=== PATIENT | male | born 1980 | race Caucasian/White ===

== ENCOUNTER 2019-06-29 18:36 | Inpatient (IN) | payer MEDICAID ==
[~2019-06-29] VITALS: Ht 170.2 cm; Wt 117.0 kg
[2019-06-29] MEDS: FLUoxetine HCL 20 MG CAPSULE PO SCH (21:48)
[2019-06-29] MEDS: QUEtiapine FUMARATE 100 MG TABLET PO SCH (21:48)
[2019-06-29] MEDS ORDERED: INFLUENZA VIRUS VACCINE QVS 2019-20 (3YR+)/PF 60 MCG/0.5 ML SYRINGE IM ONE (22:00)
[2019-06-29 22:08] VITALS: BP 128/74
[2019-06-30 05:22] VITALS: BP 109/67
[2019-06-30] MEDS: LEVOTHYROXINE SODIUM 150 MCG TABLET PO SCH (06:42)
[2019-06-30 08:17] LABS: BASOPHILS % (AUTO) 0.6 % (0.0-2.0); EOSINOPHILS % (AUTO) 1.2 % (1.0-6.0); HEMATOCRIT 44.7 % (41-53); LYMPHOCYTES # (AUTO) 3.9 K/uL (1.0-4.8); LYMPHOCYTES % (AUTO) 41.9 % (22.0-44.0); MEAN CORPUSCULAR HGB CONC 33.6 G/dL (31.0-37.0); MEAN CORPUSCULAR VOLUME 92 fL (80-100); MONOCYTES % (AUTO) 10.8 % (2.0-9.0); NEUTROPHILS # (AUTO) 4.2 K/uL (1.8-7.7); NEUTROPHILS % (AUTO) 45.5 % (40.0-70.0); PLATELET COUNT (AUTO) 250 K/uL (150-450); RED BLOOD CELL COUNT(AUTO) 4.84 MIL/uL (4.50-5.90); RED CELL DISTRIBUTION WIDTH 13.6 % (11.5-14.5)
[2019-06-30] MEDS: NICOTINE 14 MG/24 HOUR PATCH TD SCH (08:28)
[2019-06-30 08:38] LABS: ALANINE AMINOTRANSFERASE 39 U/L (12-78); ALKALINE PHOSPHATASE 98 U/L (46-116); ANION GAP 7 mmol/L (8-16); ASPARTATE AMINOTRANSFERASE 31 U/L (15-37); CALCIUM, TOTAL 8.4 mg/dL (8.8-10.5); CARBON DIOXIDE 28 mmol/L (22-29); CHLORIDE 103 mmol/L (98-107); CREATININE 0.91 mg/dL (0.60-1.30); GLOMERULAR FILTR. RATE CALC > 60 mL/min (>60); GLUCOSE,RANDOM 85 mg/dL (70-110); POTASSIUM 4.3 mmol/L (3.5-5.1); SODIUM SERUM 138 mmol/L (136-145); TOTAL PROTEIN, SERUM 6.7 g/dL (6.4-8.2); UREA NITROGEN, BLOOD 8 mg/dL (7-18)
[2019-06-30 09:11] LABS: BILIRUBIN,TOTAL 0.7 mg/dL (0.1-1.0)
[2019-06-30 10:16] VITALS: BP 103/69
[2019-06-30] MEDS: LORazepam 2 MG TABLET PO PRN (13:22)
[2019-06-30 17:27] VITALS: BP 118/72
[2019-06-30] MEDS: QUEtiapine FUMARATE 100 MG TABLET PO SCH (20:12)
[2019-06-30] MEDS: FLUoxetine HCL 20 MG CAPSULE PO SCH (20:12)
[2019-06-30] MEDS: ZOLPIDEM TARTRATE 10 MG TABLET PO PRN (21:04)
[2019-07-01 01:00] VITALS: BP 121/78
[2019-07-01] MEDS: LORazepam 2 MG TABLET PO PRN ×3 (04:28→15:47)
[2019-07-01] MEDS: LEVOTHYROXINE SODIUM 150 MCG TABLET PO SCH (07:00)
[2019-07-01] MEDS: NICOTINE 14 MG/24 HOUR PATCH TD SCH (08:06)
[2019-07-01 08:53] VITALS: BP 101/67
[2019-07-01 16:14] VITALS: BP 107/72
[2019-07-01] MEDS ORDERED: ONDANSETRON HCL 4 MG TABLET PO PRN (16:30)
[2019-07-01] MEDS ORDERED: IBUPROFEN 400 MG TABLET PO PRN (16:30)
[2019-07-01] MEDS ORDERED: CloNIDine HCL 0.1 MG TABLET PO PRN (16:30)
[2019-07-01] MEDS ORDERED: ALBUTEROL SULFATE HFA 90 MCG/PUFF 8 GM INHALER IH PRN (16:30)
[2019-07-01] MEDS ORDERED: MAGNESIUM HYDROXIDE SUSPENSION 30 ML UDCUP PO PRN (16:30)
[2019-07-01] MEDS ORDERED: LOPERAMIDE HCL 2 MG CAPSULE PO PRN (16:30)
[2019-07-01] MEDS ORDERED: NICOTINE 14 MG/24 HOUR PATCH TD PRN (16:30)
[2019-07-01] MEDS ORDERED: PETROLATUM,WHITE 28 GM JELLY TP PRN (16:30)
[2019-07-01] MEDS ORDERED: DOCUSATE SODIUM 100 MG CAPSULE PO PRN (16:30)
[2019-07-01] MEDS ORDERED: MAG HYDROX/AL HYDROX/SIMETH ES 30 ML SUSPENSION UDCUP PO PRN (16:30)
[2019-07-01] MEDS ORDERED: ACETAMINOPHEN 325 MG TABLET PO PRN (16:30)
[2019-07-01] MEDS ORDERED: GuaiFENesin/D-METHORPHAN [SUGAR-FREE] 200-20MG/10 ML SYRUP UDCUP PO PRN (16:30)
[2019-07-01] MEDS: QUEtiapine FUMARATE 100 MG TABLET PO SCH (20:44)
[2019-07-01] MEDS: ZOLPIDEM TARTRATE 10 MG TABLET PO PRN (20:44)
[2019-07-01] MEDS: FLUoxetine HCL 20 MG CAPSULE PO SCH (20:51)
[2019-07-01] MEDS: QUEtiapine FUMARATE 100 MG TABLET PO PRN (22:17)
[2019-07-02] MEDS: LORazepam 2 MG TABLET PO PRN ×3 (01:22→18:19)
[2019-07-02 06:33] VITALS: BP 105/75
[2019-07-02] MEDS: LEVOTHYROXINE SODIUM 150 MCG TABLET PO SCH (07:02)
[2019-07-02 08:16] VITALS: BP 139/90
[2019-07-02] MEDS: NICOTINE 14 MG/24 HOUR PATCH TD SCH (08:43)
[2019-07-02 08:47] VITALS: BP 109/74
[2019-07-02 16:04] VITALS: BP 123/76
[2019-07-02] MEDS: QUEtiapine FUMARATE 200 MG TABLET PO SCH (20:12)
[2019-07-02] MEDS: FLUoxetine HCL 20 MG CAPSULE PO SCH (20:12)
[2019-07-02] MEDS: ZOLPIDEM TARTRATE 10 MG TABLET PO PRN (21:04)
[2019-07-03] MEDS: LORazepam 2 MG TABLET PO PRN ×4 (03:23→22:23)
[2019-07-03 03:24] VITALS: BP 133/90
[2019-07-03] MEDS: LEVOTHYROXINE SODIUM 150 MCG TABLET PO SCH (06:57)
[2019-07-03] MEDS: NICOTINE 14 MG/24 HOUR PATCH TD SCH (08:30)
[2019-07-03 08:40] VITALS: BP 105/64
[2019-07-03 16:07] VITALS: BP 121/86
[2019-07-03] MEDS: QUEtiapine FUMARATE 200 MG TABLET PO SCH (20:22)
[2019-07-03] MEDS: ZOLPIDEM TARTRATE 10 MG TABLET PO PRN (20:22)
[2019-07-04 00:23] VITALS: BP 113/62
[2019-07-04] MEDS: LEVOTHYROXINE SODIUM 150 MCG TABLET PO SCH (06:14)
[2019-07-04] MEDS: LORazepam 2 MG TABLET PO PRN ×3 (06:22→18:41)
[2019-07-04] MEDS: NICOTINE 14 MG/24 HOUR PATCH TD SCH (08:08)
[2019-07-04] MEDS: FLUoxetine HCL 20 MG CAPSULE PO SCH (08:08)
[2019-07-04 08:24] VITALS: BP 102/60
[2019-07-04 16:19] VITALS: BP 117/72
[2019-07-04] MEDS ORDERED: QUEtiapine FUMARATE 300 MG ER TABLET PO SCH (21:00)
[2019-07-04] MEDS: ZOLPIDEM TARTRATE 10 MG TABLET PO PRN (21:14)
[2019-07-05 00:12] VITALS: BP 126/73
[2019-07-05] MEDS: LEVOTHYROXINE SODIUM 150 MCG TABLET PO SCH (06:59)
[2019-07-05] MEDS: FLUoxetine HCL 20 MG CAPSULE PO SCH (08:04)
[2019-07-05] MEDS: NICOTINE 14 MG/24 HOUR PATCH TD SCH (08:04)
[2019-07-05 08:10] VITALS: BP 105/68
[2019-07-05] MEDS: LORazepam 2 MG TABLET PO PRN ×2 (09:10→13:56)
[2019-07-05] MEDS: GABAPENTIN 300 MG CAPSULE PO SCH ×2 (16:07→20:12)
[2019-07-05] MEDS: MIRTAZAPINE 15 MG TABLET PO SCH (16:07)
[2019-07-05 16:11] VITALS: BP 121/75
[2019-07-05] MEDS: ESZOPICLONE 3 MG TABLET PO SCH (20:12)
[2019-07-05] MEDS ORDERED: MIRTAZAPINE 15 MG TABLET PO SCH (21:00)
[2019-07-05] MEDS ORDERED: TraZODone HCL 100 MG TABLET PO SCH (21:00)
[2019-07-06 06:35] VITALS: BP 121/72
[2019-07-06] MEDS: LEVOTHYROXINE SODIUM 150 MCG TABLET PO SCH (06:56)
[2019-07-06] MEDS: LORazepam 2 MG TABLET PO PRN ×3 (07:00→18:36)
[2019-07-06] MEDS: GABAPENTIN 300 MG CAPSULE PO SCH ×2 (08:33→12:27)
[2019-07-06] MEDS: MIRTAZAPINE 15 MG TABLET PO SCH ×4 (08:33→20:06)
[2019-07-06] MEDS: NICOTINE 14 MG/24 HOUR PATCH TD SCH (08:34)
[2019-07-06 08:55] VITALS: BP 106/69
[2019-07-06 09:10] LABS: FREE T4 (FREE THYROXINE) 1.3 ng/dL (0.76-1.46); THYROID STIMULATING HORMONE 0.89 uIU/mL (0.36-3.74)
[2019-07-06 16:05] VITALS: BP 118/72
[2019-07-06] MEDS: GABAPENTIN 400 MG CAPSULE PO SCH ×2 (17:00→20:06)
[2019-07-06] MEDS: TraZODone HCL 100 MG TABLET PO SCH (20:05)
[2019-07-06] MEDS: ESZOPICLONE 3 MG TABLET PO SCH (20:05)
[2019-07-07 06:06] VITALS: BP 109/88
[2019-07-07] MEDS: LORazepam 2 MG TABLET PO PRN ×4 (06:10→23:47)
[2019-07-07] MEDS: LEVOTHYROXINE SODIUM 150 MCG TABLET PO SCH (06:10)
[2019-07-07] MEDS: QUEtiapine FUMARATE 100 MG TABLET PO PRN ×3 (06:10→21:45)
[2019-07-07 07:49] LABS: CHOL/HDL RATIO 5.9 (4.2-7.3)
[2019-07-07] MEDS: MIRTAZAPINE 15 MG TABLET PO SCH ×4 (08:14→20:14)
[2019-07-07] MEDS: NICOTINE 14 MG/24 HOUR PATCH TD SCH (08:14)
[2019-07-07] MEDS: GABAPENTIN 400 MG CAPSULE PO SCH ×4 (08:14→20:15)
[2019-07-07 08:17] VITALS: BP 130/90
[2019-07-07 17:58] VITALS: BP 120/69
[2019-07-07] MEDS: TraZODone HCL 100 MG TABLET PO SCH (20:13)
[2019-07-07] MEDS: ESZOPICLONE 3 MG TABLET PO SCH (20:38)
[2019-07-07 23:46] VITALS: BP 108/68
[2019-07-08] MEDS: ZOLPIDEM TARTRATE 10 MG TABLET PO PRN ×2 (01:47→20:36)
[2019-07-08 03:51] VITALS: BP 110/77
[2019-07-08] MEDS: LORazepam 2 MG TABLET PO PRN ×3 (07:00→19:25)
[2019-07-08] MEDS: LEVOTHYROXINE SODIUM 150 MCG TABLET PO SCH (07:09)
[2019-07-08] MEDS: MIRTAZAPINE 15 MG TABLET PO SCH ×4 (08:14→20:35)
[2019-07-08] MEDS: GABAPENTIN 400 MG CAPSULE PO SCH ×4 (08:14→20:36)
[2019-07-08] MEDS: NICOTINE 14 MG/24 HOUR PATCH TD SCH (08:15)
[2019-07-08] MEDS: QUEtiapine FUMARATE 100 MG TABLET PO PRN (08:21)
[2019-07-08 08:41] VITALS: BP_SYST 107; BP_SYST 121; BP_DIAS 65; BP_DIAS 66
[2019-07-08 13:36] VITALS: BP 112/68
[2019-07-08 16:05] VITALS: BP 141/93
[2019-07-08] MEDS: TraZODone HCL 100 MG TABLET PO SCH (20:35)
[2019-07-08] MEDS: ESZOPICLONE 3 MG TABLET PO SCH (20:37)
[2019-07-09 00:15] VITALS: BP 113/90
[2019-07-09] MEDS: LORazepam 2 MG TABLET PO PRN (00:17)
[2019-07-09] MEDS: QUEtiapine FUMARATE 100 MG TABLET PO PRN (02:55)
[2019-07-09] MEDS: LEVOTHYROXINE SODIUM 150 MCG TABLET PO SCH (06:49)
[2019-07-09 08:25] VITALS: BP 109/90
[2019-07-09] MEDS: NICOTINE 14 MG/24 HOUR PATCH TD SCH (08:26)
[2019-07-09] MEDS: GABAPENTIN 400 MG CAPSULE PO SCH ×2 (08:26→12:01)
[2019-07-09] MEDS: MIRTAZAPINE 15 MG TABLET PO SCH (08:26)
[2019-07-09] MEDS ORDERED: MIRT15TA6 PO ×2 (11:31)
[2019-07-09] MEDS ORDERED: ESZO3 PO (11:31)
[2019-07-09] MEDS ORDERED: TRAZ-257 PO (11:31)
[2019-07-09] MEDS ORDERED: GABA-533 PO (11:31)
[2019-07-09] MEDS ORDERED: LEVO125T95 PO (12:58)
== END 2019-07-09 14:10 | disposition home or self-care (01) | DRG 751 ==
LOC: B2S 20:47
PROVIDERS: ADMIT Psychiatry & Neurology Psychiatry; ATTEND Psychiatry & Neurology Psychiatry
DX: F33.2 Major depressive disorder, recurrent severe without psychotic features (principal); R45.851 Suicidal ideations; Z91.19 Patient's noncompliance with other medical treatment and regimen; E03.9 Hypothyroidism, unspecified; F11.10 Opioid abuse, uncomplicated; G43.909 Migraine, unspecified, not intractable, without status migrainosus; F19.10 Other psychoactive substance abuse, uncomplicated; F41.9 Anxiety disorder, unspecified; Z91.5 Personal history of self-harm; Z81.8 Family history of other mental and behavioral disorders; Z59.0 Homelessness; Z71.51 Drug abuse counseling and surveillance of drug abuser; Z87.891 Personal history of nicotine dependence; Z23 Encounter for immunization
CPT/HCPCS: 84402; 84403; 84439; 84443; 87081; 90686

== ENCOUNTER 2019-09-02 21:01 | Emergency (ER) | payer SELFPAY ==
[~2019-09-02] VITALS: Ht 172.7 cm; Wt 111.4 kg
[~2019-09-02 21:01] MED LIST: ESZO3 PO; FLUO-191 PO; GABA-533 PO; LEVO150 PO; MIRT-89 PO; QUET100T PO; TRAZ-257 PO
[2019-09-02] MEDS ORDERED: ACETAMINOPHEN 500 MG TABLET PO ONE (21:15)
[2019-09-02 21:27] LABS: BASOPHILS % (AUTO) 0.8 % (0.0-2.0); EOSINOPHILS % (AUTO) 0.6 % (1.0-6.0); HEMATOCRIT 46.1 % (41-53); HEMOGLOBIN 15.3 g/dL (13.5-17.5); LYMPHOCYTES # (AUTO) 4.4 K/uL (1.0-4.8); LYMPHOCYTES % (AUTO) 26.4 % (22.0-44.0); MEAN CORPUSCULAR HGB CONC 33.2 G/dL (31.0-37.0); MEAN CORPUSCULAR VOLUME 93 fL (80-100); MONOCYTES # (AUTO) 1.5 K/uL (0.1-1.0); MONOCYTES % (AUTO) 9.3 % (2.0-9.0); NEUTROPHILS # (AUTO) 10.4 K/uL (1.8-7.7); NEUTROPHILS % (AUTO) 62.9 % (40.0-70.0); PLATELET COUNT (AUTO) 366 K/uL (150-450); RED BLOOD CELL COUNT(AUTO) 4.94 MIL/uL (4.50-5.90); RED CELL DISTRIBUTION WIDTH 14.3 % (11.5-14.5)
[2019-09-02 21:41] LABS: ANION GAP 5 mmol/L (8-16); CALCIUM, TOTAL 8.8 mg/dL (8.8-10.5); CARBON DIOXIDE 27 mmol/L (22-29); CHLORIDE 105 mmol/L (98-107); CREATININE 0.96 mg/dL (0.60-1.30); GLOMERULAR FILTR. RATE CALC > 60 mL/min (>60); GLUCOSE,RANDOM 104 mg/dL (70-110); POTASSIUM 3.9 mmol/L (3.5-5.1); SODIUM SERUM 137 mmol/L (136-145); UREA NITROGEN, BLOOD 8 mg/dL (7-18)
[2019-09-02 21:47] LABS: ALANINE AMINOTRANSFERASE 66 U/L (12-78); ALBUMIN 3.5 g/dL (3.4-5.0); ALKALINE PHOSPHATASE 114 U/L (46-116); ASPARTATE AMINOTRANSFERASE 25 U/L (15-37); BILIRUBIN,TOTAL 0.3 mg/dL (0.1-1.0); TOTAL PROTEIN, SERUM 7.1 g/dL (6.4-8.2)
[2019-09-02] MEDS ORDERED: HALOPERIDOL 5 MG TABLET PO ONE (22:45)
[2019-09-02 23:25] VITALS: BP 116/63
[2019-09-03] MEDS ORDERED: GABA-531 PO (14:40)
[2019-09-03] MEDS ORDERED: MIRT30 PO (14:40)
[2019-09-03] MEDS ORDERED: NALT50TA PO (14:40)
[2019-09-03] MEDS ORDERED: TRAZ-252 PO (14:40)
[2019-09-03] MEDS ORDERED: HALO5TAB23 GT (15:34)
[2019-09-03] MEDS ORDERED: HALO5TAB23 PO (15:36)
[2019-09-03] MEDS ORDERED: ZOLP10TA2 PO (16:31)
[2019-09-03] MEDS ORDERED: ACAM333T7 PO (16:31)
[2019-09-03] MEDS ORDERED: QUESL4 PO (16:40)
[2019-09-03] MEDS ORDERED: THIA100T75 PO (16:41)
[2019-09-03] MEDS ORDERED: FOLI0.4T91 PO (16:42)
[2019-09-03] MEDS ORDERED: LEVO125T95 PO (16:42)
[2019-09-03] MEDS ORDERED: MULT-1239 PO (16:42)
== END 2019-09-03 00:03 | disposition home or self-care (01) ==
LOC: EMS 21:09
DX: S50.12XA Contusion of left forearm, initial encounter (principal); S50.11XA Contusion of right forearm, initial encounter; F32.9 Major depressive disorder, single episode, unspecified; Y04.2XXA Assault by strike against or bumped into by another person, initial encounter; Y93.89 Activity, other specified; Y92.89 Other specified places as the place of occurrence of the external cause; Y99.8 Other external cause status
CPT/HCPCS: 70450; 73090; 73130; 80053; 85025; 99284; G0480